=== PATIENT | female | born 1985 | race Caucasian/White ===

== ENCOUNTER 2016-12-07 22:59 | Emergency (ER) | payer OTHER ==
[~2016-12-07 22:59] MED LIST: BACTRIM PO; CIP250 PO; CIPRO250 MG PO; FLA500 PO; LAC PO; MAC100 PO; NEU300 PO; PROMETHAZINE12.5 M4 PO; TYLENOL WITH CO1 TA2 PO; ZOF4 PO; ZOFI IV
[2016-12-08 00:35] LABS: microscopic required? YES; urine erythrocyte 1+ (NEGATIVE)
[2016-12-08 01:35] LABS: CALCIUM 8.8 mg/dL (8.5-10.1); CARBON DIOXIDE 24.7 mmol/L (21-32); CHLORIDE SERUM 108 mmol/L (98-107); CREATININE SERUM 0.7 mg/dL (0.6-1.0); GFR1 > 60 mL/min; GLUCOSE SERUM 98 mg/dL (74-106); POTASSIUM SERUM 3.9 mmol/L (3.5-5.1); SODIUM SERUM 141 mmol/L (136-145)
[2016-12-08 01:44] LABS: ALBUMIN 3.4 g/dL (3.4-5.0); ALKALINE PHOSPHATASE 39 U/L (46-116); ALT/SGPT 16 U/L (14-59); AST/SGOT 10 U/L (15-37); BILIRUBIN TOTAL 0.15 mg/dL (0.20-1.00); LIPASE 106 IU/L (73-393); TOTAL PROTEIN, SERUM 6.5 g/dL (6.4-8.2)
[2016-12-08 02:27] LABS: PLATELET COUNT 224 x10^3mcL (130-400); RED CELL DISTRIBUTION WIDTH 12.8 % (11.5-14.5)
[2016-12-08 02:29] LABS: BASOPHIL % 7.2 % (0-2)
[2016-12-08 03:42] VITALS: BP 105/58
== END 2016-12-08 03:42 | disposition home or self-care (01) ==
LOC: ED 22:59
PROVIDERS: Emergency Medicine
DX: R10.84 Generalized abdominal pain (principal); J45.909 Unspecified asthma, uncomplicated; Z88.0 Allergy status to penicillin; Z88.8 Allergy status to other drugs, medicaments and biological substances; Z88.6 Allergy status to analgesic agent; Z79.899 Other long term (current) drug therapy
CPT/HCPCS: J2270; J7030; Q0162

== ENCOUNTER 2017-04-01 01:21 | Emergency (ER) | payer OTHER ==
[2017-04-01 03:03] LABS: UA SPECIFIC GRAVITY >=1.030 (1.005-1.035); microscopic required? YES; urine erythrocyte 2+ (NEGATIVE)
[2017-04-01 03:05] LABS: BASOPHIL % 0.8 % (0-2); PLATELET COUNT 213 x10^3mcL (130-400); RED CELL DISTRIBUTION WIDTH 13.9 % (11.5-14.5)
[2017-04-01 03:10] LABS: CARBON DIOXIDE 24.3 mmol/L (21-32); CHLORIDE SERUM 114 mmol/L (98-107); CREATININE SERUM 0.7 mg/dL (0.6-1.0); GFR1 > 60 mL/min; GLUCOSE SERUM 93 mg/dL (74-106); POTASSIUM SERUM 3.5 mmol/L (3.5-5.1); SODIUM SERUM 150 mmol/L (136-145)
[2017-04-01 03:15] LABS: ALBUMIN 3.5 g/dL (3.4-5.0); ALKALINE PHOSPHATASE 44 U/L (46-116); ALT/SGPT 16 U/L (14-59); AMYLASE 29 U/L (25-115); AST/SGOT 15 U/L (15-37); BILIRUBIN TOTAL 0.16 mg/dL (0.20-1.00); LIPASE 56 IU/L (73-393); TOTAL PROTEIN, SERUM 7.1 g/dL (6.4-8.2)
[2017-04-01 05:21] VITALS: BP 109/73
== END 2017-04-01 05:21 | disposition home or self-care (01) ==
LOC: ED 01:21
PROVIDERS: Emergency Medicine
DX: N12 Tubulo-interstitial nephritis, not specified as acute or chronic (principal); Z98.51 Tubal ligation status; Z88.0 Allergy status to penicillin; Z88.8 Allergy status to other drugs, medicaments and biological substances
CPT/HCPCS: 83880; J2270; J2405; J7030

== ENCOUNTER 2017-04-30 23:59 | Inpatient (IN) | payer OTHER ==
[~2017-04-30] VITALS: Ht 157.5 cm; Wt 70.3 kg
[2017-05-01] VITALS (8 sets, daily range): BP systolic 84–101; BP diastolic 42–58; Ht 157.5 cm; Wt 70.3 kg
[2017-05-01 02:27] LABS: UA SPECIFIC GRAVITY >=1.030 (1.005-1.035); microscopic required? YES; urine erythrocyte 3+ (NEGATIVE)
[2017-05-01 03:49] LABS: BASOPHIL % 0.3 % (0-2); PLATELET COUNT 234 x10^3mcL (130-400); RED CELL DISTRIBUTION WIDTH 13.8 % (11.5-14.5)
[2017-05-01 03:54] LABS: CALCIUM 9.2 mg/dL (8.5-10.1); CARBON DIOXIDE 27.7 mmol/L (21-32); CHLORIDE SERUM 109 mmol/L (98-107); CREATININE SERUM 0.7 mg/dL (0.6-1.0); GFR1 > 60 mL/min; GLUCOSE SERUM 89 mg/dL (74-106); POTASSIUM SERUM 3.1 mmol/L (3.5-5.1); SODIUM SERUM 142 mmol/L (136-145)
[2017-05-01] MEDS ORDERED: GABAPENTIN600 M1 PO ×2 (03:55→04:10)
[2017-05-01] MEDS ORDERED: BACTRIM DS1 TAB PO ×3 (03:58→04:12)
[2017-05-01 04:00] LABS: ALBUMIN 3.8 g/dL (3.4-5.0); ALKALINE PHOSPHATASE 55 U/L (46-116); ALT/SGPT 17 U/L (14-59); AST/SGOT 14 U/L (15-37); BILIRUBIN TOTAL 0.2 mg/dL (0.20-1.00); TOTAL PROTEIN, SERUM 7.5 g/dL (6.4-8.2)
[2017-05-01 04:05] LABS: T3 TOTAL 1.2 ng/mL
[2017-05-01 04:26] LABS: CHOLESTEROL/HDL RATIO 4.1; MAGNESIUM 1.9 mg/dL (1.8-2.4); PHOSPHOROUS 4.6 mg/dL (2.5-4.9)
[2017-05-01 04:35] LABS: FREE T4 0.88 ng/dL (0.76-1.46); FREE THYROXINE INDEX 2.4 ug/dL (1.4-4.5); T4(THYROXINE) 7.4 ug/dL (4.7-13.3)
[2017-05-01 05:39] LABS: AMPHETAMINE QUAL UR NONE DETECTED (NEG <=1000)
[2017-05-02 04:54] VITALS: BP 93/43
[2017-05-02 07:31] LABS: BASOPHIL % 0.3 % (0-2); PLATELET COUNT 192 x10^3mcL (130-400); RED CELL DISTRIBUTION WIDTH 13.9 % (11.5-14.5)
[2017-05-02 07:48] LABS: CALCIUM 8.1 mg/dL (8.5-10.1); CARBON DIOXIDE 24.2 mmol/L (21-32); CHLORIDE SERUM 112 mmol/L (98-107); CREATININE SERUM 0.6 mg/dL (0.6-1.0); GFR1 > 60 mL/min; GLUCOSE SERUM 97 mg/dL (74-106); PHOSPHOROUS 2.4 mg/dL (2.5-4.9); POTASSIUM SERUM 4.1 mmol/L (3.5-5.1); SODIUM SERUM 143 mmol/L (136-145)
[2017-05-02 09:00] VITALS: BP 114/62
[2017-05-02 09:01] VITALS: BP 114/62
[2017-05-02 13:29] VITALS: BP 103/58
[2017-05-02] MEDS ORDERED: SULFAMETHOXAZOL1 TA3 PO (14:13)
[2017-05-02] MEDS ORDERED: ULTRAM50 MG PO (14:14)
[2017-05-02] MEDS ORDERED: LAC PO (14:18)
[2017-05-02] MEDS ORDERED: ZOFRAN8 MG PO (14:20)
[2017-05-02] MEDS ORDERED: TYLENOL WITH CO1 TA2 PO (14:22)
[2017-05-03] MEDS ORDERED: NITROFURANTOIN100 MG PO (12:21)
== END 2017-05-02 15:48 | disposition home or self-care (01) | DRG 463 ==
LOC: ED 23:59 → DU 05-01 03:19
PROVIDERS: Emergency Medicine; ADMIT Family Medicine
DX: N12 Tubulo-interstitial nephritis, not specified as acute or chronic (principal); N17.0 Acute kidney failure with tubular necrosis; E87.6 Hypokalemia; E66.3 Overweight; E02 Subclinical iodine-deficiency hypothyroidism; N31.9 Neuromuscular dysfunction of bladder, unspecified; Z68.28 Body mass index [BMI] 28.0-28.9, adult; Z88.0 Allergy status to penicillin; Z88.3 Allergy status to other anti-infective agents; Z88.8 Allergy status to other drugs, medicaments and biological substances; Z90.49 Acquired absence of other specified parts of digestive tract; Z98.51 Tubal ligation status; Z83.3 Family history of diabetes mellitus; Z80.3 Family history of malignant neoplasm of breast; J45.909 Unspecified asthma, uncomplicated
CPT/HCPCS: 83880; 84439; J1170; J1956; J2270; J2405; J2550; J3480; J7030; Q0092; Q0162

== ENCOUNTER 2017-06-29 22:21 | Emergency (ER) | payer OTHER ==
[~2017-06-29] VITALS: Ht 157.5 cm; Wt 68.9 kg
[~2017-06-29 22:21] MED LIST changes: +BACTRIM DS1 TAB PO; +GABAPENTIN600 M1 PO; +NITROFURANTOIN100 MG PO; +SULFAMETHOXAZOL1 TA3 PO; +ULTRAM50 MG PO; +ZOFRAN8 MG PO
[2017-06-30 00:08] LABS: microscopic required? YES; urine erythrocyte 2+ (NEGATIVE)
[2017-06-30 00:10] LABS: BASOPHIL % 0.3 % (0-2); PLATELET COUNT 223 x10^3mcL (130-400)
[2017-06-30 00:19] LABS: CALCIUM 9.2 mg/dL (8.5-10.1); CARBON DIOXIDE 22.2 mmol/L (21-32); CHLORIDE SERUM 106 mmol/L (98-107); CREATININE SERUM 0.7 mg/dL (0.6-1.0); GFR1 > 60 mL/min; GLUCOSE SERUM 89 mg/dL (74-106); POTASSIUM SERUM 4.1 mmol/L (3.5-5.1); SODIUM SERUM 141 mmol/L (136-145)
[2017-06-30 00:24] LABS: AMPHETAMINE QUAL UR NONE DETECTED (NEG <=1000)
[2017-06-30 00:26] LABS: ALKALINE PHOSPHATASE 58 U/L (46-116); ALT/SGPT 2 U/L (14-59); AST/SGOT 14 U/L (15-37); BILIRUBIN TOTAL 0.1 mg/dL (0.20-1.00); TOTAL PROTEIN, SERUM 7.4 g/dL (6.4-8.2)
[2017-06-30 01:03] VITALS: BP 113/69
[2017-06-30 01:34] LABS: ALBUMIN 3.8 g/dL (3.4-5.0)
== END 2017-06-30 01:03 | disposition home or self-care (01) ==
LOC: ED 22:21
PROVIDERS: Emergency Medicine
DX: N39.0 Urinary tract infection, site not specified (principal); J45.909 Unspecified asthma, uncomplicated; N31.9 Neuromuscular dysfunction of bladder, unspecified; Z88.6 Allergy status to analgesic agent; Z88.0 Allergy status to penicillin; Z79.2 Long term (current) use of antibiotics; Z79.899 Other long term (current) drug therapy; Z98.890 Other specified postprocedural states
CPT/HCPCS: J2405; J3010; J7030

== ENCOUNTER 2017-06-30 14:35 | Emergency (ER) | payer OTHER ==
[2017-06-30 16:29] LABS: microscopic required? YES; urine erythrocyte 3+ (NEGATIVE)
[2017-06-30 16:35] LABS: BASOPHIL % 0.3 % (0-2); PLATELET COUNT 224 x10^3mcL (130-400); RED CELL DISTRIBUTION WIDTH 14.1 % (11.5-14.5)
[2017-06-30 16:59] LABS: CALCIUM 9.2 mg/dL (8.5-10.1); CARBON DIOXIDE 29.7 mmol/L (21-32); CHLORIDE SERUM 106 mmol/L (98-107); CREATININE SERUM 0.8 mg/dL (0.6-1.0); GFR1 > 60 mL/min; GLUCOSE SERUM 84 mg/dL (74-106); POTASSIUM SERUM 3.6 mmol/L (3.5-5.1); SODIUM SERUM 142 mmol/L (136-145)
[2017-06-30 17:03] LABS: ALBUMIN 3.8 g/dL (3.4-5.0); ALKALINE PHOSPHATASE 51 U/L (46-116); ALT/SGPT 15 U/L (14-59); AMYLASE 46 U/L (25-115); AST/SGOT 9 U/L (15-37); BILIRUBIN TOTAL 0.18 mg/dL (0.20-1.00); LIPASE 79 IU/L (73-393); TOTAL PROTEIN, SERUM 7.7 g/dL (6.4-8.2)
[2017-06-30 19:24] VITALS: BP 93/58
== END 2017-06-30 19:25 | disposition home or self-care (01) ==
LOC: ED 14:35
PROVIDERS: Emergency Medicine
DX: N39.0 Urinary tract infection, site not specified (principal); J45.909 Unspecified asthma, uncomplicated; G62.9 Polyneuropathy, unspecified; N31.9 Neuromuscular dysfunction of bladder, unspecified; Z88.0 Allergy status to penicillin; Z88.8 Allergy status to other drugs, medicaments and biological substances
CPT/HCPCS: J0696; J1170; J2405; J7030

== ENCOUNTER 2017-11-21 01:22 | Emergency (ER) | payer OTHER ==
[~2017-11-21] VITALS: Ht 154.9 cm; Wt 54.4 kg
[2017-11-21 01:49] VITALS: Ht 154.9 cm; Wt 54.4 kg
[2017-11-21 03:30] LABS: BASOPHIL % 0.2 % (0-2); PLATELET COUNT 225 x10^3mcL (130-400); RED CELL DISTRIBUTION WIDTH 13.9 % (11.5-14.5)
[2017-11-21 03:38] LABS: CALCIUM 9.2 mg/dL (8.5-10.1); CARBON DIOXIDE 24.5 mmol/L (21-32); CHLORIDE SERUM 106 mmol/L (98-107); CREATININE SERUM 0.7 mg/dL (0.6-1.0); GFR1 > 60 mL/min; GLUCOSE SERUM 96 mg/dL (74-106); POTASSIUM SERUM 3.3 mmol/L (3.5-5.1); SODIUM SERUM 141 mmol/L (136-145)
[2017-11-21 03:43] LABS: ALBUMIN 3.7 g/dL (3.4-5.0); ALKALINE PHOSPHATASE 39 U/L (46-116); ALT/SGPT 20 U/L (14-59); AST/SGOT 16 U/L (15-37); BILIRUBIN TOTAL 0.2 mg/dL (0.20-1.00); TOTAL PROTEIN, SERUM 7.1 g/dL (6.4-8.2); URIC ACID 4.2 mg/dL (2.6-6.0)
[2017-11-21 06:56] VITALS: BP 107/72
== END 2017-11-21 06:56 | disposition home or self-care (01) ==
LOC: ED 01:22
PROVIDERS: Emergency Medicine
DX: N39.0 Urinary tract infection, site not specified (principal); J45.909 Unspecified asthma, uncomplicated; Z88.0 Allergy status to penicillin; Z88.6 Allergy status to analgesic agent
CPT/HCPCS: J1956; J2765; J7030; Q0162

== ENCOUNTER 2018-09-20 21:53 | Emergency (ER) | payer OTHER ==
[~2018-09-20] VITALS: Ht 165.1 cm; Wt 68.5 kg
[2018-09-20 21:55] VITALS: Ht 165.1 cm; Wt 68.5 kg
[2018-09-20 23:24] LABS: BASOPHIL % 0.9 % (0-2); PLATELET COUNT 283 x10^3mcL (130-400); RED CELL DISTRIBUTION WIDTH 13.2 % (11.5-14.5)
[2018-09-20 23:35] LABS: ALBUMIN 4.3 g/dL (3.4-5.0); ALKALINE PHOSPHATASE 48 U/L (46-116); ALT/SGPT 14 U/L (14-59); AST/SGOT 12 U/L (15-37); BILIRUBIN TOTAL 0.3 mg/dL (0.20-1.00); CALCIUM 9.6 mg/dL (8.5-10.1); CARBON DIOXIDE 25.5 mmol/L (21-32); CHLORIDE SERUM 103 mmol/L (98-107); CREATININE SERUM 0.8 mg/dL (0.6-1.0); GFR1 > 60 mL/min; GLUCOSE SERUM 89 mg/dL (74-106); SODIUM SERUM 137 mmol/L (136-145)
[2018-09-20 23:37] LABS: TOTAL PROTEIN, SERUM 8.3 g/dL (6.4-8.2)
[2018-09-20 23:39] LABS: POTASSIUM SERUM 2.9 mmol/L (3.5-5.1)
[2018-09-20 23:44] LABS: UA SPECIFIC GRAVITY 1.025 (1.005-1.035); microscopic required? YES; urine erythrocyte 3+ (NEGATIVE)
[2018-09-21 03:40] VITALS: BP 96/36
[2018-09-22] MEDS ORDERED: BACTRIM DS1 TAB PO (16:20)
[2018-09-22] MEDS ORDERED: GABAPENTIN800 M1 PO (16:20)
== END 2018-09-21 03:40 | disposition home or self-care (01) ==
LOC: ED 21:53
PROVIDERS: Emergency Medicine
DX: E87.6 Hypokalemia (principal); R31.9 Hematuria, unspecified; J45.909 Unspecified asthma, uncomplicated; Z88.6 Allergy status to analgesic agent; Z88.0 Allergy status to penicillin; Z91.041 Radiographic dye allergy status; Z98.51 Tubal ligation status
CPT/HCPCS: J2270; J2405; J3480; J7030; Q0092

== ENCOUNTER 2018-09-22 11:42 | Inpatient (IN) | payer OTHER ==
[~2018-09-22] VITALS: Ht 157.5 cm; Wt 69.4 kg
[2018-09-22 12:50] VITALS: Ht 157.5 cm; Wt 69.4 kg
[2018-09-22 15:07] LABS: BASOPHIL % 0.5 % (0-2); PLATELET COUNT 235 x10^3mcL (130-400)
[2018-09-22 15:24] LABS: CALCIUM 8.6 mg/dL (8.5-10.1); CARBON DIOXIDE 22.5 mmol/L (21-32); CHLORIDE SERUM 111 mmol/L (98-107); CREATININE SERUM 0.7 mg/dL (0.6-1.0); GFR1 > 60 mL/min; GLUCOSE SERUM 85 mg/dL (74-106); POTASSIUM SERUM 3.5 mmol/L (3.5-5.1); SODIUM SERUM 146 mmol/L (136-145)
[2018-09-22 15:31] LABS: CK-MB 1.3 ng/mL (0-3.6)
[2018-09-22 15:34] LABS: T3 TOTAL 0.89 ng/mL
[2018-09-22 15:36] LABS: ALBUMIN 3.7 g/dL (3.4-5.0); ALKALINE PHOSPHATASE 36 U/L (46-116); ALT/SGPT 7 U/L (14-59); AST/SGOT 13 U/L (15-37); BILIRUBIN TOTAL 0.38 mg/dL (0.20-1.00); TOTAL PROTEIN, SERUM 7.2 g/dL (6.4-8.2)
[2018-09-22 15:38] LABS: FREE T4 0.98 ng/dL (0.76-1.46); FREE THYROXINE INDEX 2.5 ug/dL (1.4-4.5); T4(THYROXINE) 7.2 ug/dL (4.7-13.3)
[2018-09-22 15:54] LABS: ERYTHROCYTE SED RATE 12 mm/hr (0-20)
[2018-09-22 16:06] LABS: C REACTIVE PROTEIN < 0.2 mg/dL (<=0.9)
[2018-09-22] MEDS ORDERED: GABAPENTIN800 M1 PO (16:20)
[2018-09-22] MEDS ORDERED: BACTRIM DS1 TAB PO (16:20)
[2018-09-22 18:10] VITALS: BP 123/69
[2018-09-22 20:05] LABS: MAGNESIUM 2.2 mg/dL (1.8-2.4); PHOSPHOROUS 3.2 mg/dL (2.5-4.9)
[2018-09-22 21:17] VITALS: BP 106/67
[2018-09-23 01:22] LABS: UA SPECIFIC GRAVITY >=1.030 (1.005-1.035); microscopic required? YES; urine erythrocyte 2+ (NEGATIVE)
[2018-09-23 02:00] LABS: AMPHETAMINE QUAL UR NONE DETECTED (See below)
[2018-09-23 05:55] VITALS: BP 119/77
[2018-09-23 06:58] LABS: CALCIUM 8.6 mg/dL (8.5-10.1); CARBON DIOXIDE 20.6 mmol/L (21-32); CHLORIDE SERUM 110 mmol/L (98-107); CREATININE SERUM 0.7 mg/dL (0.6-1.0); GFR1 > 60 mL/min; GLUCOSE SERUM 90 mg/dL (74-106); POTASSIUM SERUM 3.4 mmol/L (3.5-5.1); SODIUM SERUM 143 mmol/L (136-145)
[2018-09-23 07:09] LABS: BASOPHIL % 0.4 % (0-2); PLATELET COUNT 207 x10^3mcL (130-400); RED CELL DISTRIBUTION WIDTH 13.6 % (11.5-14.5)
[2018-09-23 09:50] VITALS: BP 121/74
[2018-09-23 12:56] VITALS: BP 118/41
[2018-09-23 18:07] VITALS: BP 103/65
[2018-09-23 20:34] VITALS: BP 98/51
[2018-09-24 05:13] VITALS: BP 100/57
[2018-09-24 10:04] VITALS: BP 111/72
[2018-09-24 12:27] LABS: BASOPHIL % 0.4 % (0-2); PLATELET COUNT 202 x10^3mcL (130-400); RED CELL DISTRIBUTION WIDTH 14.1 % (11.5-14.5)
[2018-09-24 12:39] LABS: CALCIUM 8.4 mg/dL (8.5-10.1); CARBON DIOXIDE 26.3 mmol/L (21-32); CHLORIDE SERUM 111 mmol/L (98-107); CREATININE SERUM 0.9 mg/dL (0.6-1.0); GFR1 > 60 mL/min; GLUCOSE SERUM 96 mg/dL (74-106); PHOSPHOROUS 3.3 mg/dL (2.5-4.9); POTASSIUM SERUM 3.3 mmol/L (3.5-5.1); SODIUM SERUM 143 mmol/L (136-145)
[2018-09-24 13:34] VITALS: BP 92/53
[2018-09-24 17:41] VITALS: BP 95/50
[2018-09-24 20:29] VITALS: BP 94/55
[2018-09-25 05:40] VITALS: BP 96/62
[2018-09-25 06:53] LABS: CALCIUM 8.5 mg/dL (8.5-10.1); CARBON DIOXIDE 23.8 mmol/L (21-32); CHLORIDE SERUM 111 mmol/L (98-107); CREATININE SERUM 0.8 mg/dL (0.6-1.0); GFR1 > 60 mL/min; GLUCOSE SERUM 90 mg/dL (74-106); PHOSPHOROUS 3.5 mg/dL (2.5-4.9); POTASSIUM SERUM 3.8 mmol/L (3.5-5.1); SODIUM SERUM 141 mmol/L (136-145)
[2018-09-25 07:54] LABS: BASOPHIL % 0.4 % (0-2); PLATELET COUNT 190 x10^3mcL (130-400); RED CELL DISTRIBUTION WIDTH 14.4 % (11.5-14.5)
[2018-09-25 09:24] VITALS: BP 103/71
[2018-09-25 13:09] VITALS: BP 93/62
[2018-09-25] MEDS ORDERED: LEVOFLOXACIN750 M1 PO (13:36)
[2018-09-25 14:06] VITALS: BP 93/62
== END 2018-09-25 15:21 | disposition home or self-care (01) | DRG 463 ==
LOC: ED 11:42 → MU 15:46 → DU 15:46 → MU 16:58 → DU 23:00
PROVIDERS: Specialist; ADMIT Family Medicine
DX: N10 Acute pyelonephritis (principal); E87.0 Hyperosmolality and hypernatremia; N31.8 Other neuromuscular dysfunction of bladder; K56.7 Ileus, unspecified; J45.909 Unspecified asthma, uncomplicated; E87.6 Hypokalemia; R10.813 Right lower quadrant abdominal tenderness; Z87.440 Personal history of urinary (tract) infections; Z88.6 Allergy status to analgesic agent; Z88.0 Allergy status to penicillin; Z91.041 Radiographic dye allergy status; Z98.51 Tubal ligation status; Z90.49 Acquired absence of other specified parts of digestive tract; Z83.3 Family history of diabetes mellitus; Z80.3 Family history of malignant neoplasm of breast
CPT/HCPCS: 84439; J1956; J2270; J2405; J2550; J2765; J7030; Q0092

== ENCOUNTER 2018-11-06 15:37 | Emergency (ER) | payer OTHER ==
[~2018-11-06] VITALS: Ht 162.6 cm; Wt 74.4 kg
[~2018-11-06 15:37] MED LIST changes: +GABAPENTIN800 M1 PO; +LEVOFLOXACIN750 M1 PO
[2018-11-06 15:41] VITALS: BP 121/85; Ht 162.6 cm; Wt 74.4 kg
== END 2018-11-06 15:59 | disposition left against medical advice (07) ==
LOC: ED 15:37
DX: Z53.21 Procedure and treatment not carried out due to patient leaving prior to being seen by health care provider (principal)